=== PATIENT | male | born 2000 | race Caucasian/White ===

== ENCOUNTER 2022-03-22 17:03 | Emergency (ER) | payer OTHER ==
[~2022-03-22] VITALS: Ht 162.6 cm; Wt 63.5 kg
[2022-03-22 17:11] VITALS: BP 118/73
--- NOTE | 2022-03-22 17:20 | NUR ---
C/O 7/10 L SHOULDER/ WRIST/ HAND PAIN S/P INJURY X 1 MONTH.
[2022-03-22 18:47] VITALS: BP 118/73
--- NOTE | 2022-03-22 18:47 | NUR ---
Patient discharged with v/s stable. Written and verbal after care instructions given and explained. Patient verbalized understanding. Ambulatory with steady gait. All questions addressed prior to discharge. Advised to follow up with PMD.
== END 2022-03-22 18:47 | disposition home or self-care (01) ==
LOC: MED 17:03
DX: S46.911A Strain of unspecified muscle, fascia and tendon at shoulder and upper arm level, right arm, initial encounter (principal); X58.XXXA Exposure to other specified factors, initial encounter; Y92.89 Other specified places as the place of occurrence of the external cause; Y93.89 Activity, other specified; Y99.8 Other external cause status
CPT/HCPCS: 99281